=== PATIENT | male | born 1990 | race Caucasian/White ===

== ENCOUNTER 2020-05-08 09:21 | Day surgery (SDC) | payer OTHER ==
[~2020-05-08] VITALS: Ht 182.9 cm; Wt 78.9 kg
[~2020-05-08 09:21] MED LIST: CETI10CA2 PO; FLON1SPR; NS 1,000 ML IV ONE; PANT20TA6 PO; VITMTA PO
[2020-05-08] MEDS ORDERED: LIDOCAINE 2% 100MG/5ML SDV (FOR ANES.) As Ordered ONE (10:29)
[2020-05-08] MEDS ORDERED: propofoL 500 MG/50 ML VIAL As Ordered ONE (10:29)
[2020-05-08] MEDS ORDERED: fentaNYL 100 MCG/2 ML INJECTION (J3010) As Ordered ONE (10:29)
--- NOTE | 2020-05-08 10:50 | ROOR ---
Patient Name: Hermelindo Junior Procedure Date: 05/08/2020 10:23 AM Date of : 1990 Age: 30 Room: [facility] Gender: Male Note Status: Finalized Procedure: Upper Endoscopy + Biopsies Indications: Heartburn Providers: Sean Rene MD Referring MD: TOMMIE RASHID MD Requesting Provider: Medicines: Monitored Anesthesia Care Complications: No immediate complications. Procedure: Pre-Anesthesia Assessment: - The heart rate, respiratory rate, oxygen saturations, blood pressure, adequacy of pulmonary ventilation, and response to care were monitored throughout the procedure. The Endoscope was introduced through the mouth, and advanced to the second part of duodenum. The upper GI endoscopy was accomplished without difficulty. The patient tolerated the procedure well. Findings: The Z-line was regular and was found 40 cm from the incisors. Multiple biopsies were obtained with cold forceps for evaluation to rule out Quintero's Esophagus randomly at the gastroesophageal junction. No other significant abnormalities were identified in a careful examination of the stomach. The exam of the duodenum was otherwise normal. Mucosal changes were found in the mid esophagus. Biopsies were taken with a cold forceps for histology. The exam was otherwise without abnormality. Impression: - Z-line regular, 40 cm from the incisors. - Esophageal mucosal changes suspicious for eosinophilic esophagitis. Biopsied. - The examination was otherwise normal. - Multiple biopsies were obtained at the gastroesophageal junction. - The examination was otherwise normal. Recommendation: - Await pathology results. - Discharge patient to home. - Follow an antireflux regimen. - Continue present medications. - Await pathology results. - Telephone GI clinic for pathology results in 1 week. - Return to referring physician. - The findings and recommendations were discussed with the patient. Procedure Code(s): --- Professional --- 01889, Esophagogastroduodenoscopy, flexible, transoral; with biopsy, single or multiple Diagnosis Code(s): --- Professional --- K22.8, Other specified diseases of esophagus R12, Heartburn CPT copyright 2019 [employer]. All rights reserved. The codes documented in this report are preliminary and upon medical biller coder review may be revised to meet current compliance requirements. Sean Rene MD Sean Rene MD 05/08/2020 10:49:57 AM Electronically signed by Sean Rene MD Number of Addenda: 0 Note Initiated On: 05/08/2020 10:23 AM Estimated Blood Loss: Estimated blood loss: none.
[2020-05-08 11:06] VITALS: BP 130/77
== END 2020-05-08 11:09 | disposition home or self-care (01) ==
LOC: M OPP 09:21
PROVIDERS: ATTEND Internal Medicine Gastroenterology
DX: R12 Heartburn (principal); D13.0 Benign neoplasm of esophagus; D13.1 Benign neoplasm of stomach; K22.8 Other specified diseases of esophagus; Z79.899 Other long term (current) drug therapy
CPT/HCPCS: 43239; 88305; J3010